=== PATIENT | male | born 1975 | race Asian ===

== ENCOUNTER 2016-09-12 10:03 | Emergency (ER) | payer SELFPAY ==
[~2016-09-12] VITALS: Ht 170.2 cm; Wt 122.0 kg
[2016-09-12] MEDS ORDERED: HYDROCODONE/ACETAMINOPHEN 5/325MG TABLET PO STA (10:45)
[2016-09-12 11:00] VITALS: BP 144/87
== END 2016-09-12 13:24 | disposition home or self-care (01) ==
LOC: ER 10:57
DX: M77.32 Calcaneal spur, left foot (principal)
CPT/HCPCS: 73630; 99284

== ENCOUNTER 2019-01-28 13:42 | Emergency (ER) | payer MEDICAID ==
[~2019-01-28] VITALS: Ht 167.6 cm; Wt 113.0 kg
[2019-01-28] MEDS ORDERED: IBUPROFEN 600MG TABLET PO ONE (17:30)
[2019-01-28 19:07] VITALS: BP 118/77
== END 2019-01-28 19:08 | disposition home or self-care (01) ==
LOC: ER 13:42
DX: S96.812A Strain of other specified muscles and tendons at ankle and foot level, left foot, initial encounter (principal); Z87.81 Personal history of (healed) traumatic fracture; X58.XXXA Exposure to other specified factors, initial encounter; Y93.89 Activity, other specified; Y92.89 Other specified places as the place of occurrence of the external cause
CPT/HCPCS: 73610; 73630; 99283; Z7610

== ENCOUNTER 2021-03-20 05:13 | Emergency (ER) | payer MEDICAID ==
[~2021-03-20] VITALS: Ht 170.2 cm; Wt 108.0 kg
[2021-03-20 05:30] VITALS: BP 125/74
[2021-03-20] MEDS ORDERED: KETOROLAC 60MG/2ML VIAL IM ONE (05:45)
[2021-03-20] MEDS ORDERED: CYCLOBENZAPRINE 10MG TABLET PO ONE (05:45)
[2021-03-20] MEDS ORDERED: CYCL10TA7 MT (05:55)
[2021-03-20] MEDS ORDERED: NAPR-1164 MT (05:55)
[2021-03-20] MEDS ORDERED: HYDR-4233 TP (05:55)
== END 2021-03-20 06:44 | disposition home or self-care (01) ==
LOC: ER 05:26
DX: S13.9XXA Sprain of joints and ligaments of unspecified parts of neck, initial encounter (principal); V43.52XA Car driver injured in collision with other type car in traffic accident, initial encounter; Y93.89 Activity, other specified; Y92.89 Other specified places as the place of occurrence of the external cause; Y99.8 Other external cause status
CPT/HCPCS: 96372; 99283; J1885